=== PATIENT | female | born 1970 | race Caucasian/White ===

== ENCOUNTER → 2020-02-22 | Outpatient (CLI) | payer SELFPAY | LOC: M LABSMTC 08:11 | PROVIDERS: ATTEND Pediatrics | DX: Z20.828 Contact with and (suspected) exposure to other viral communicable diseases (principal) ==

== ENCOUNTER → 2020-06-06 | Outpatient (CLI) | payer OTHER ==
[~2020-06-06] MED LIST: ACYC400T PO; FLUO40CA PO; LISI10TA15 PO; PROBCAP14 PO; SIMV20TA22 PO; XYZASOL2 PO
== END ==
LOC: M LABSMTC 08:29
PROVIDERS: ATTEND Anesthesiology
DX: Z11.52 Encounter for screening for COVID-19 (principal)

== ENCOUNTER 2020-06-11 07:07 | Day surgery (SDC) | payer OTHER ==
[~2020-06-11] VITALS: Ht 157.5 cm; Wt 81.2 kg
[~2020-06-11 07:07] MED LIST changes: +NS 1,000 ML IV ONE
[2020-06-11] MEDS ORDERED: LIDOCAINE 2% 100MG/5ML SDV (FOR ANES.) As Ordered ONE (07:17)
[2020-06-11] MEDS ORDERED: propofoL 200 MG/20 ML VIAL As Ordered ONE (07:17)
[2020-06-11 08:45] VITALS: BP 126/73
--- NOTE | 2020-06-11 08:50 | ROOR ---
Patient Name: Rox Ruiz Procedure Date: 06/11/2020 8:12 AM Date of : 1970 Age: 49 Room: [facility] Gender: Female Note Status: Finalized Procedure: Colonoscopy Indications: Screening for colorectal malignant neoplasm, This is the patient's first colonoscopy Providers: Augustin Colon MD Referring MD: Fartun Landry NP Requesting Provider: Medicines: Monitored Anesthesia Care Complications: No immediate complications. Procedure: Pre-Anesthesia Assessment: - Prior to the procedure, a History and Physical was performed, and patient medications and allergies were reviewed. The patient is competent. The risks and benefits of the procedure and the sedation options and risks were discussed with the patient. All questions were answered and informed consent was obtained. Patient identification and proposed procedure were verified by the physician, the nurse and the informatics nurse specialist in the procedure room. Mental Status Examination: normal. Airway Examination: normal oropharyngeal airway and neck mobility. Prophylactic Antibiotics: The patient does not require prophylactic antibiotics. Prior Anticoagulants: The patient has taken no previous anticoagulant or antiplatelet agents. ASA Grade Assessment: II - A patient with mild systemic disease. After reviewing the risks and benefits, the patient was deemed in satisfactory condition to undergo the procedure. The anesthesia plan was to use monitored anesthesia care (MAC). Immediately prior to administration of medications, the patient was re-assessed for adequacy to receive sedatives. The heart rate, respiratory rate, oxygen saturations, blood pressure, adequacy of pulmonary ventilation, and response to care were monitored throughout the procedure. The physical status of the patient was re-assessed after the procedure. The Colonoscope was introduced through the anus and advanced to the terminal ileum, with identification of the appendiceal orifice and IC valve. The colonoscopy was performed without difficulty. The patient tolerated the procedure well. The quality of the bowel preparation was excellent. Findings: The perianal and digital rectal examinations were normal. The colon (entire examined portion) appeared normal. The terminal ileum appeared normal. Impression: - The entire examined colon is normal. - The examined portion of the ileum was normal. - No specimens collected. Recommendation: - Discharge patient to home. - Resume previous diet. - Continue present medications. - Repeat colonoscopy in 10 years for screening purposes. Procedure Code(s): --- Professional --- 91515, Colonoscopy, flexible; diagnostic, including collection of specimen(s) by brushing or washing, when performed (separate procedure) Diagnosis Code(s): --- Professional --- Z12.11, Encounter for screening for malignant neoplasm of colon CPT copyright 2019 [employer]. All rights reserved. The codes documented in this report are preliminary and upon salesforce business analyst review may be revised to meet current compliance requirements. Augustin Colon MD Augustin Colon MD 06/11/2020 8:50:09 AM Electronically signed by Augustin Colon MD Number of Addenda: 0 Note Initiated On: 06/11/2020 8:12 AM Estimated Blood Loss: Estimated blood loss: none.
== END 2020-06-11 08:58 | disposition home or self-care (01) ==
LOC: M OPP 07:07
PROVIDERS: ATTEND Surgery
DX: Z12.11 Encounter for screening for malignant neoplasm of colon (principal); Z79.899 Other long term (current) drug therapy; Z88.0 Allergy status to penicillin

== ENCOUNTER → 2021-08-09 | Outpatient (REF) | payer OTHER ==
[~2021-08-09] MED LIST changes: +ACYC1TAB PO; -ACYC400T PO; -LISI10TA15 PO; +LISI10TA24 PO; -NS 1,000 ML IV ONE
== END ==
LOC: M LAB REF 16:30
PROVIDERS: ATTEND Registered Nurse
DX: K90.0 Celiac disease (principal)

== ENCOUNTER → 2022-10-05 | Outpatient (CLI) | payer OTHER | LOC: M WHC 09:17 | PROVIDERS: ATTEND Nurse Practitioner Family | DX: Z53.9 Procedure and treatment not carried out, unspecified reason (principal) ==

== ENCOUNTER → 2023-05-14 | Outpatient (CLI) | payer OTHER ==
[2023-05-14 10:24] LABS: ALBUMIN 3.9 G/DL (3.2-5.2); ALKALINE PHOSPHATASE 85 U/L (46-116); ALT/SGPT 25 U/L (7.0-40); AST/SGOT 19 U/L (<34); BILIRUBIN,TOTAL 0.5 MG/DL (0.3-1.2); BLOOD UREA NITROGEN 13 MG/DL (9-23); CALCIUM LEVEL 9.3 MG/DL (8.5-10.1); CARBON DIOXIDE LEVEL 27 MMOL/L (20-31); CHLORIDE LEVEL 102 MMOL/L (98-107); GLOMERULAR FILTRATION RATE > 60.0 (>51); GLUCOSE, FASTING 81 MG/DL (60-100); SODIUM LEVEL 135 MMOL/L (136-145); TOTAL PROTEIN 6.8 G/DL (5.7-8.2)
[2023-05-14 10:26] LABS: THYROID STIMULATING HORMONE 1.149 uIU/ML (0.55-4.78)
== END ==
LOC: M LAB 08:18
PROVIDERS: ATTEND Registered Nurse
DX: Z79.899 Other long term (current) drug therapy (principal)

== ENCOUNTER → 2023-06-05 | Outpatient (CLI) | payer OTHER | LOC: M SLEEP HO 11:04 | PROVIDERS: ATTEND Nurse Practitioner Family | DX: R40.0 Somnolence (principal) ==

== ENCOUNTER → 2024-09-30 | Outpatient (REF) | payer OTHER ==
[~2024-09-30] MED LIST changes: +ACYC-438 PO; -ACYC1TAB PO
== END ==
LOC: M SFHCWAGY 15:29
PROVIDERS: ATTEND Nurse Practitioner Family
DX: Z12.4 Encounter for screening for malignant neoplasm of cervix (principal); N95.2 Postmenopausal atrophic vaginitis